=== PATIENT | female | born 1970 | race American Indian/Alaskan Native ===

== ENCOUNTER 2018-02-12 04:49 | Emergency (ER) | payer BC, OTHER ==
[2018-02-12] MEDS ORDERED: XANAX PO ONE (07:20)
--- NOTE | 2018-02-12 07:25 | Emergency Department Report ---
HPI - General Chief Complaint: Anxiety Time Seen by Provider: 02/12/18 07:02 - HPI HPI: 47-year-old AA female presents to the emergency department with complaint of inability to sleep, some racing thoughts, anxiety. The patient has a history of bipolar disorder and usually is on Abilify 5 mg. She says that she has been compliant with his medication but her says that she has not been on it and ran out of the medication a while back. The patient says that she recently has been dealing with a lot of stress including seeing her father in the hospital dealing with some TIAs or seizures. The patient also says that she tries to avoid hearing or seeing the news as it upsets her but she found out in the waiting room this morning that there was some children that had been killed that was playing on the local news. When these things occur, the patient gets headaches, body aches and feels very tense. She denies any suicidal or homicidal ideations. She denies any auditory or visual hallucinations. The patient also has been dealing with some sinus issues for the past month. She also has been dealing with a cough and had a chest x-ray last that eventually showed that she had pneumonia. She was placed on amoxicillin on but was having some side effects from this medication and they stopped it on Friday. She denies any recent fever. She denies any chest pain or shortness of breath. ED Past Medical Hx - Past Medical History Previous Medical History?: Yes Hx Asthma: Yes - Surgical History Past Surgical History?: No - Social History Smoking Status: Never Smoker Substance Use Type: None - Medications Home Medications: Home Medications Medication Instructions Recorded Confirmed Last Taken Type ARIPiprazole [Abilify] 5 mg PO QDAY #30 tablet 02/12/18 Unknown Rx ED Review of Systems ROS: Stated complaint: ANXIETY ATTACK Other details as noted in HPI Comment: All other systems reviewed and negative Constitutional: denies: chills, fever Eyes: denies: eye pain, eye discharge, vision change ENT: denies: ear pain, throat pain Respiratory: denies: cough, shortness of breath, wheezing Cardiovascular: denies: chest pain, palpitations Gastrointestinal: denies: abdominal pain, nausea, diarrhea Genitourinary: denies: urgency, dysuria, discharge Musculoskeletal: myalgia. denies: back pain, joint swelling, arthralgia Skin: denies: rash, lesions Neurological: headache. denies: numbness, paresthesias Psychiatric: anxiety. denies: auditory hallucinations, visual hallucinations, homicidal thoughts, suicidal thoughts Physical Exam - Physical Exam Vital Signs: Vital Signs 02/12/18 02/12/18 05:15 06:51 Temperature 98.7 F 98.7 F Pulse Rate 97 H 87 Respiratory 18 18 Rate Blood Pressure 140/74 Blood Pressure 130/72 [Left] O2 Sat by Pulse 98 98 Oximetry Physical Exam: GENERAL: The patient is well-developed well-nourished. HENT: Normocephalic. Atraumatic. Patient has moist mucous membranes. EYES: Extraocular motions are intact. Pupils equal reactive to light bilaterally. NECK: Supple. Trachea is midline. CHEST/LUNGS: Clear to auscultation. There is no respiratory distress noted. HEART/CARDIOVASCULAR: Regular. There is no tachycardia. There is no murmur. ABDOMEN: Abdomen is soft, nontender. Patient has normal bowel sounds. There is no abdominal distention. SKIN: Skin is warm and dry. NEURO: The patient is awake, alert, and oriented. The patient is cooperative. The patient has no focal neurologic deficits. The patient has normal speech. MUSCULOSKELETAL: There is no tenderness or deformity. There is no limitation range of motion. There is no evidence of acute injury. ED Course Vital Signs 02/12/18 02/12/18 05:15 06:51 Temperature 98.7 F 98.7 F Pulse Rate 97 H 87 Respiratory 18 18 Rate Blood Pressure 140/74 Blood Pressure 130/72 [Left] O2 Sat by Pulse 98 98 Oximetry ED Medical Decision Making - Lab Data Result diagrams: 02/12/18 07:25 02/12/18 07:25 - Radiology Data Radiology results: image reviewed interpreted by me: Chest x-ray does not show any acute process. There are no pleural effusions, obvious pneumonia and there is no pneumothorax. - Medical Decision Making Patient is here for evaluation of her insomnia, possible anxiety or ricky. She does not have any hallucinations, suicidal or homicidal ideations. She does not appear to be a candidate to be made a 1013 for inpatient psychiatric admission. This was confirmed by the psych senior tax specialist, Obdulia, who saw the patient in the emergency department as well. Labs are mostly unremarkable. A chest x-ray was done that did not show any pneumonia, or any other acute process. Patient was given some Xanax at a low dose to see if it help her with her anxiety type symptoms and possibly get some rest. However she just felt slightly sedated but did not like the way it made her feel. Therefore I will not prescribe this medication to her. She was given a refill of her Abilify which she says is only at a dose of 5 mg per day. She has an appointment coming up this Friday with a psychiatrist or therapist who can then assess her for any additional medication she may need. She is still on Levaquin for a previous sinusitis and/or pneumonia diagnosis. She has been encouraged to return to the emergency Department with any worsening of her symptoms or any acute distress. - Differential Diagnosis bipolar disorder, depression, anxiety Critical Care Time: No Critical care attestation.: If time is entered above; I have spent that time in minutes in the direct care of this critically ill patient, excluding procedure time. ED Disposition Clinical Impression: History of bipolar disorder, Anxiety Insomnia Qualifiers: Insomnia type: unspecified Qualified Code(s): G47.00 - Insomnia, unspecified Disposition: DC-01 TO HOME OR SELFCARE Is pt being admited?: No Condition: Stable Instructions: Bipolar Disorder (ED), Insomnia (ED), Anxiety (ED) Additional Instructions: Please follow-up with your psychiatrist and/or therapist as soon as possible. Return to the emergency department with any worsening of your symptoms or any acute distress. Prescriptions: ARIPiprazole [Abilify] 5 mg PO QDAY #30 tablet Referrals: PRIMARY CAREMD [Primary Care Provider] - [facility] Time of Disposition: 12:18
[2018-02-12 07:36] LABS: Basophils % (Auto) 0.6 % (0.0-1.8); Eosinophils # (Auto) 0.1 K/mm3 (0.0-0.4); Eosinophils % (Auto) 2.2 % (0.0-4.3); Hematocrit 36.6 % (30.3-42.9); Hemoglobin 12.2 gm/dl (10.1-14.3); Lymphocytes # (Auto) 1.4 K/mm3 (1.2-5.4); Lymphocytes % (Auto) 31.7 % (13.4-35.0); Mean Corpuscular HGB Conc 33 % (30-34); Mean Corpuscular Hemoglobin 30 pg (28-32); Mean Corpuscular Volume 90 fl (79-97); Monocytes # (Auto) 0.5 K/mm3 (0.0-0.8); Monocytes % (Auto) 10.7 % (0.0-7.3); Platelet Count 220 K/mm3 (140-440); Red Blood Count 4.09 M/mm3 (3.65-5.03); Red Cell Distribution Width 13.7 % (13.2-15.2)
[2018-02-12 07:50] LABS: BUN/Creatinine Ratio 21; Blood Urea Nitrogen 17 mg/dL (7-17); Hemolysis Index 3
--- NOTE | 2018-02-12 08:22 | XRay Report ---
ROUTINE CHEST, TWO VIEWS: HISTORY: Medical clearance for psychiatry, chest pain. The trachea, heart, mediastinal contour, lung galindo and bony thorax are unremarkable. IMPRESSION: Unremarkable chest x-ray.
[2018-02-12 17:39] VITALS: BP 128/72
== END 2018-02-12 13:00 | disposition home or self-care (01) ==
LOC: ED 04:49
DX: G47.00 Insomnia, unspecified (principal); F41.9 Anxiety disorder, unspecified; J45.909 Unspecified asthma, uncomplicated
CPT/HCPCS: 36415; 71046; 80048; 84443; 85025

== ENCOUNTER 2018-02-14 06:42 | Emergency (ER) | payer BC ==
[2018-02-14] MEDS ORDERED: TYLENOL #3 PO ONE (09:17)
--- NOTE | 2018-02-14 09:18 | Emergency Department Report ---
ED Extremity Problem HPI - General Chief complaint: Pain General Stated complaint: PAIN ALL OVER BODY Time Seen by Provider: 02/14/18 08:37 Source: patient Mode of arrival: Ambulatory Limitations: No Limitations - History of Present Illness Initial comments: 47-year-old female past medical history bipolar disorder, carpal tunnel syndrome right hand, migraines, asthma presents with complaint of left wrist/ forearm pain which has been ongoing for several weeks but worse in the last 2 days. Patient states that symptoms are consistent with carpal tunnel syndrome which she has experienced chronically in her right hand/arm. Denies any direct trauma to left wrist. Patient also states that she has been having chronic bilateral knee pain is slightly worse than left knee than right knee. Patient complains of some radiation of pain to left calf. Patient denies any recent trauma. Patient is awake alert and oriented 3. Denies any fevers chills chest pain shortness of breath. Denies any history of DVT or PE denies being on any control medications. States pain from left wrist causes numbness and tingling to radiate from left wrist into middle ring and pinky fingers. MD Complaint: extremity pain Onset/Timin -: days(s) Location: left (left wrist), knee History of Same: Yes -: Yes arthralgia Severity scale (0 -10): 5 Quality: aching Consistency: intermittent Improves with: nothing Worsens with: nothing Associated Symptoms: denies other symptoms - Related Data Previous Rx's Medication Instructions Recorded Last Taken Type ARIPiprazole [Abilify] 5 mg PO QDAY #30 tablet 02/12/18 Unknown Rx HYDROcodone/APAP 5-325 [[place] 1 each PO Q6HR PRN #2 tablet 02/14/18 Unknown Rx 5/325] Ibuprofen [Motrin] 800 mg PO Q8HR PRN #20 tablet 02/14/18 Unknown Rx Allergies Allergy/AdvReac Type Severity Reaction Status Date / Time No Known Allergies Allergy Unverified 02/12/18 05:22 ED Review of Systems ROS: Stated complaint: PAIN ALL OVER BODY Other details as noted in HPI Constitutional: denies: chills, fever Eyes: denies: eye pain, eye discharge, vision change ENT: denies: ear pain, throat pain Respiratory: denies: cough, shortness of breath, wheezing Cardiovascular: denies: chest pain, palpitations Endocrine: no symptoms reported Gastrointestinal: denies: abdominal pain, nausea, diarrhea Genitourinary: denies: urgency, dysuria, discharge Musculoskeletal: denies: back pain, joint swelling, arthralgia Skin: denies: rash, lesions Neurological: denies: headache, weakness, paresthesias Psychiatric: denies: anxiety, depression Hematological/Lymphatic: denies: easy bleeding, easy bruising ED Past Medical Hx - Past Medical History Previous Medical History?: Yes Hx Psychiatric Treatment: Yes (Bipolar) Hx Asthma: Yes Additional medical history: migraine - Surgical History Past Surgical History?: Yes Additional Surgical History: Tubaligation - Social History Smoking Status: Never Smoker Substance Use Type: None - Medications Home Medications: Home Medications Medication Instructions Recorded Confirmed Last Taken Type ARIPiprazole [Abilify] 5 mg PO QDAY #30 tablet 02/12/18 Unknown Rx HYDROcodone/APAP 5-325 [[place] 1 each PO Q6HR PRN #2 tablet 02/14/18 Unknown Rx 5/325] Ibuprofen [Motrin] 800 mg PO Q8HR PRN #20 tablet 02/14/18 Unknown Rx ED Physical Exam - General Limitations: No Limitations General appearance: alert, in no apparent distress - Head Head exam: Present: atraumatic, normocephalic - Eye Eye exam: Present: normal appearance, PERRL, EOMI - ENT ENT exam: Present: mucous membranes moist - Neck Neck exam: Present: normal inspection - Respiratory Respiratory exam: Present: normal lung sounds bilaterally. Absent: respiratory distress - Cardiovascular Cardiovascular Exam: Present: regular rate, normal rhythm. Absent: systolic murmur, diastolic murmur, rubs, gallop - GI/Abdominal GI/Abdominal exam: Present: soft, normal bowel sounds - Extremities Exam Extremities exam: Present: normal inspection - Expanded Upper Extremity Exam Left Elbow exam: Present: normal inspection, full ROM Forearm Wrist exam: Present: normal inspection, other (+ phalpen and tinel sign) Hand Wrist exam: Present: normal inspection, full ROM (left wrist flexion and extension intact) Neuro motor exam: Present: wrist extension intact, thumb opposition intact, thumb IP flexion intact, thumb adduction intact, fingers 2-5 abduction intact Vascular: Present: radial pulse, brachial pulse, ulnar pulse (distal radial brachial and ulnar pulses strong to palpation, capillary refill less than one second in all finger) - Expanded Lower Extremity Exam Left Knee exam: Present: normal inspection, full ROM, full knee extension (flexion and extension intact left knee) Lower Leg exam: Present: normal inspection, full ROM Ankle exam: Present: normal inspection, full ROM Foot/Toe exam: Present: normal inspection, full ROM Neuro vascular tendon exam: Present: no vascular compromise (distal dorsalis pedis and posterior tibial pulses strong to palpation) - Back Exam Back exam: Present: normal inspection - Neurological Exam Neurological exam: Present: alert, oriented X3 - Psychiatric Psychiatric exam: Present: normal affect, normal mood - Skin Skin exam: Present: warm, dry, intact, normal color. Absent: rash ED Course Vital Signs 02/14/18 06:57 Temperature 98.7 F Pulse Rate 101 H Respiratory 20 Rate Blood Pressure 112/69 O2 Sat by Pulse 98 Oximetry ED Medical Decision Making - Medical Decision Making A/P: Chronic extremity pain, left wrist carpal tunnel 1-patient provided with left wrist Velcro volar splint. Left upper extremity neurovascularly intact on exam. Patient exhibits history and clinical signs of carpal tunnel based on interview and exam 2-Motrin when necessary 3-follow-up with primary care and orthopedics 4- x-rays of knee is unremarkable, lower extremity duplex negative for DVT Critical care attestation.: If time is entered above; I have spent that time in minutes in the direct care of this critically ill patient, excluding procedure time. ED Disposition Clinical Impression: Carpal tunnel syndrome of left wrist Chronic pain Qualifiers: Chronic pain type: other chronic pain Qualified Code(s): G89.29 - Other chronic pain Left knee pain Qualifiers: Chronicity: chronic Qualified Code(s): M25.562 - Pain in left knee; G89.29 - Other chronic pain Disposition: TO HOME OR SELFCARE Is pt being admited?: No Does the pt Need Aspirin: No Condition: Stable Instructions: Arthralgia (ED), Carpal Tunnel Syndrome (ED), RICE Therapy (ED) Prescriptions: HYDROcodone/APAP 5-325 [[place] 5/325] 1 each PO Q6HR PRN #2 tablet PRN Reason: Pain Ibuprofen [Motrin] 800 mg PO Q8HR PRN #20 tablet PRN Reason: Pain Referrals: KASSIE EMERSON [Other] - 3-5 Days [facility] [Provider Group] - 3-5 Days Time of Disposition: 11:08
--- NOTE | 2018-02-14 10:21 | XRay Report ---
BILATERAL KNEES, 3 VIEWS History: Bilateral knee pain. Findings: Normal bone mineralization. No osseous abnormality or joint pathology is appreciated. The soft tissues are within normal limits. Impression: Unremarkable bilateral knees.
[2018-02-14 11:19] VITALS: BP 108/54
== END 2018-02-14 11:18 | disposition home or self-care (01) ==
LOC: ED 06:42
DX: G56.02 Carpal tunnel syndrome, left upper limb (principal); G89.29 Other chronic pain; M25.562 Pain in left knee; J45.909 Unspecified asthma, uncomplicated; G43.909 Migraine, unspecified, not intractable, without status migrainosus; F31.9 Bipolar disorder, unspecified; Z98.51 Tubal ligation status
CPT/HCPCS: 99283

== ENCOUNTER 2019-01-25 00:33 | Emergency (ER) | payer BC ==
[2019-01-25 01:40] LABS: Bilirubin,Urine NEG (Negative); Blood,Urine SM (Negative); Color,Urine Straw (Yellow); Mucus,Urine FEW /HPF; Protein,Urine <15 mg/dL mg/dL (Negative); Urobilinogen,Urine < 2.0 mg/dL (<2.0); WBC,Urine < 1.0 /HPF (0.0-6.0)
[2019-01-25 02:04] LABS: Amphetamine Screen,Urine PRESUMPTIVE NEGATIVE; Benzodiazepines Screen,Urine PRESUMPTIVE NEGATIVE; Cannabinoid Screen,Urine PRESUMPTIVE NEGATIVE; Cocaine Screen,Urine PRESUMPTIVE NEGATIVE; Methadone Screen,Urine PRESUMPTIVE NEGATIVE; Opiate Screen,Urine PRESUMPTIVE NEGATIVE
[2019-01-25 02:40] LABS: Basophils % (Auto) 1.1 % (0.0-1.8); Hematocrit 35.9 % (30.3-42.9); Lymphocytes # (Auto) 0.9 K/mm3 (1.2-5.4); Lymphocytes % (Auto) 30.9 % (13.4-35.0); Mean Corpuscular HGB Conc 33 % (30-34); Mean Corpuscular Volume 93 fl (79-97); Monocytes # (Auto) 0.4 K/mm3 (0.0-0.8); Monocytes % (Auto) 14.6 % (0.0-7.3); Platelet Count 221 K/mm3 (140-440); Red Blood Count 3.85 M/mm3 (3.65-5.03)
[2019-01-25 03:01] LABS: Alanine Aminotransferase 36 units/L (7-56); Albumin 4.3 g/dL (3.9-5); BUN/Creatinine Ratio 16; Blood Urea Nitrogen 11 mg/dL (7-17); Calcium 8.7 mg/dL (8.4-10.2); Hemolysis Index 42
[2019-01-25] MEDS ORDERED: ZOFRAN ODT PO ONE (03:53)
[2019-01-25] MEDS ORDERED: TORADOL IM ONE (03:53)
[2019-01-25] MEDS ORDERED: NORCO 5/325 PO ONE (03:53)
--- NOTE | 2019-01-25 04:01 | Emergency Department Report ---
ED General Adult HPI - General Chief complaint: Psych Stated complaint: HEADACHE BODY PAIN Time Seen by Provider: 01/25/19 03:42 Source: patient Mode of arrival: Ambulatory Limitations: No Limitations - History of Present Illness Initial comments: Miss Iverson is a very pleasant healthy 48-year-old female with history of bipolar disorder, carpal tunnel syndrome, migraine headache, anxiety who presents with diffuse joint pain, chronic migraine headache and diarrhea. She is concerned for potential dehydration. Consequently she called 911. She has b een managing her migraine headache with Imitrex over the last 2 months. However the Imitrex has not provided for relief. She has been referred to neurologist by her PCP at [facility]. She had 2 bouts of diarrhea. She's had frequent urination. Diffuse joint pain in her shoulders elbows and knees. She also has a history of asthma. She requests refill of rescue inhaler albuterol. -: Gradual, days(s) (several days joint pain), month(s) (several months migraine headache) Location: head, left, right, upper extremity, lower extremity Severity scale (0 -10): 8 Quality: aching Consistency: constant, intermittent Associated Symptoms: headaches, malaise - Related Data Previous Rx's Medication Instructions Recorded Last Taken Type ARIPiprazole [Abilify] 5 mg PO QDAY #30 tablet 02/12/18 Unknown Rx HYDROcodone/APAP 5-325 [[place] 1 each PO Q6HR PRN #2 tablet 02/14/18 Unknown Rx 5/325] Ibuprofen [Motrin] 800 mg PO Q8HR PRN #20 tablet 02/14/18 Unknown Rx ALBUTEROL Inhaler (OR & NICU) 2 puff IH QID PRN #1 device 01/25/19 Unknown Rx [ProAir HFA Inhaler] Allergies Allergy/AdvReac Type Severity Reaction Status Date / Time No Known Allergies Allergy Unverified 02/12/18 05:22 ED Review of Systems ROS: Stated complaint: HEADACHE BODY PAIN Other details as noted in HPI Comment: All other systems reviewed and negative Constitutional: malaise Respiratory: denies: cough ED Past Medical Hx - Past Medical History Previous Medical History?: Yes Hx Psychiatric Treatment: Yes (Bipolar) Hx Asthma: Yes Additional medical history: migraine - Surgical History Past Surgical History?: Yes Additional Surgical History: Tubaligation - Social History Smoking Status: Never Smoker Substance Use Type: None - Medications Home Medications: Home Medications Medication Instructions Recorded Confirmed Last Taken Type ARIPiprazole [Abilify] 5 mg PO QDAY #30 tablet 02/12/18 Unknown Rx HYDROcodone/APAP 5-325 [[place] 1 each PO Q6HR PRN #2 tablet 02/14/18 Unknown Rx 5/325] Ibuprofen [Motrin] 800 mg PO Q8HR PRN #20 tablet 02/14/18 Unknown Rx ALBUTEROL Inhaler (OR & NICU) 2 puff IH QID PRN #1 device 01/25/19 Unknown Rx [ProAir HFA Inhaler] ED Physical Exam - General Limitations: No Limitations General appearance: alert, in no apparent distress - Head Head exam: Present: atraumatic, normocephalic - Eye Eye exam: Present: normal appearance - ENT ENT exam: Present: mucous membranes moist - Neck Neck exam: Present: normal inspection, full ROM - Respiratory Respiratory exam: Present: normal lung sounds bilaterally. Absent: respiratory distress, wheezes, rales, rhonchi - Cardiovascular Cardiovascular Exam: Present: regular rate, normal rhythm, normal heart sounds. Absent: systolic murmur, diastolic murmur, rubs, gallop - GI/Abdominal GI/Abdominal exam: Present: soft, normal bowel sounds. Absent: distended, tenderness, guarding, rebound - Extremities Exam Extremities exam: Present: normal inspection - Back Exam Back exam: Present: normal inspection - Neurological Exam Neurological exam: Present: alert, oriented X3 - Psychiatric Psychiatric exam: Present: normal mood, flat affect. Absent: homicidal ideation, suicidal ideation - Skin Skin exam: Present: warm, dry, intact, normal color. Absent: rash ED Course Vital Signs 01/25/19 01/25/19 01/25/19 00:44 00:59 02:15 Temperature 98.8 F 98.8 F 98.1 F Pulse Rate 94 H 96 H 90 Respiratory 18 18 18 Rate Blood Pressure 146/84 146/84 Blood Pressure 118/75 [Right] O2 Sat by Pulse 100 100 98 Oximetry ED Medical Decision Making - Lab Data Result diagrams: 01/25/19 02:18 01/25/19 02:18 Laboratory Results - last 24 hr 01/25/19 01/25/19 01/25/19 00:51 00:51 02:18 WBC 3.0 L RBC 3.85 Hgb 12.0 Hct 35.9 MCV 93 MCH 31 MCHC 33 RDW 15.0 Plt Count 221 Lymph % (Auto) 30.9 [place] % (Auto) 14.6 H Eos % (Auto) 1.0 Baso % (Auto) 1.1 Lymph # 0.9 L [place] # 0.4 Eos # 0.0 Baso # 0.0 Seg Neutrophils % 52.4 Seg Neutrophils # 1.6 L Sodium Potassium Chloride Carbon Dioxide Anion Gap BUN Creatinine Estimated GFR BUN/Creatinine Ratio Glucose Calcium Total Bilirubin AST ALT Alkaline Phosphatase Troponin T Total Protein Albumin Albumin/Globulin Ratio Urine Color Straw Urine Turbidity Clear Urine pH 6.0 Ur Specific [place] 1.010 Urine Protein <15 mg/dl Urine Glucose (UA) Neg Urine Ketones Neg Urine Blood Sm Urine Nitrite Neg Urine Bilirubin Neg Urine Urobilinogen < 2.0 Ur Leukocyte Esterase Neg Urine WBC (Auto) < 1.0 Urine RBC (Auto) 2.0 U Epithel Cells (Auto) 1.0 Urine Mucus Few Urine Opiates Screen Presumptive negative Urine Methadone Screen Presumptive negative Ur Barbiturates Screen Presumptive negative Ur Phencyclidine Scrn Presumptive negative Ur Amphetamines Screen Presumptive negative U Benzodiazepines Scrn Presumptive negative Urine Cocaine Screen Presumptive negative U Marijuana (THC) Screen Presumptive negative Drugs of Abuse Note Disclamer 01/25/19 02:18 WBC RBC Hgb Hct MCV MCH MCHC RDW Plt Count Lymph % (Auto) [place] % (Auto) Eos % (Auto) Baso % (Auto) Lymph # [place] # Eos # Baso # Seg Neutrophils % Seg Neutrophils # Sodium 136 L Potassium 3.7 Chloride 99.3 Carbon Dioxide 22 Anion Gap 18 BUN 11 Creatinine 0.7 Estimated GFR > 60 BUN/Creatinine Ratio 16 Glucose 97 Calcium 8.7 Total Bilirubin 0.40 AST 25 ALT 36 Alkaline Phosphatase 38 Troponin T < 0.010 Total Protein 7.1 Albumin 4.3 Albumin/Globulin Ratio 1.5 Urine Color Urine Turbidity Urine pH Ur Specific [place] Urine Protein Urine Glucose (UA) Urine Ketones Urine Blood Urine Nitrite Urine Bilirubin Urine Urobilinogen Ur Leukocyte Esterase Urine WBC (Auto) Urine RBC (Auto) U Epithel Cells (Auto) Urine Mucus Urine Opiates Screen Urine Methadone Screen Ur Barbiturates Screen Ur Phencyclidine Scrn Ur Amphetamines Screen U Benzodiazepines Scrn Urine Cocaine Screen U Marijuana (THC) Screen Drugs of Abuse Note - EKG Data EKG shows normal: sinus rhythm, axis, intervals, QRS complexes, ST-T waves Rate: normal - EKG Data Interpretation: no acute changes - Medical Decision Making Ms. Iverson presents with diffuse joint pain migraine headache. CBC chemistry urinalysis EKG all within normal limits. No evidence of sepsis or ACS. She received IM and by mouth analgesia and ADD. I prescribed albuterol rescue inhaler as requested. I explained the she appeared well hydrated on clinical exam. Her electrolytes and kidney function were at normal levels. Critical care attestation.: If time is entered above; I have spent that time in minutes in the direct care of this critically ill patient, excluding procedure time. ED Disposition Clinical Impression: Migraine headache, Arthralgia, Frequent urination, Diarrhea Disposition: - TO HOME OR SELFCARE Is pt being admited?: No Does the pt Need Aspirin: No Condition: Stable Instructions: Migraine Headache (ED) Prescriptions: ALBUTEROL Inhaler (OR & NICU) [ProAir HFA Inhaler] 2 puff IH QID PRN #1 device PRN Reason: Shortness Of Breath
[2019-01-25 04:30] VITALS: BP 122/76
== END 2019-01-25 04:53 | disposition home or self-care (01) ==
LOC: ED 00:33
DX: G43.909 Migraine, unspecified, not intractable, without status migrainosus (principal); R19.7 Diarrhea, unspecified; R35.0 Frequency of micturition; M25.50 Pain in unspecified joint; J45.909 Unspecified asthma, uncomplicated; F31.9 Bipolar disorder, unspecified; Z98.51 Tubal ligation status; Z88.6 Allergy status to analgesic agent; Z79.899 Other long term (current) drug therapy
CPT/HCPCS: 36415; 80053; 80307; 81001; 84484; 85025; 93005; 93010; 96372; 99284; J1885; Q0162

== ENCOUNTER 2020-02-19 04:57 | Emergency (ER) | payer BC ==
[2020-02-19 05:56] LABS: Basophils # (Auto) 0.1 K/mm3 (0.0-0.1); Basophils % (Auto) 1.3 % (0.0-1.8); Eosinophils % (Auto) 0.3 % (0.0-4.3); Hematocrit 35.2 % (30.3-42.9); Lymphocytes # (Auto) 0.9 K/mm3 (1.2-5.4); Lymphocytes % (Auto) 21.7 % (13.4-35.0); Mean Corpuscular HGB Conc 34 % (30-34); Mean Corpuscular Volume 92 fl (79-97); Monocytes # (Auto) 0.3 K/mm3 (0.0-0.8); Monocytes % (Auto) 8.2 % (0.0-7.3); Platelet Count 239 K/mm3 (140-440); Red Blood Count 3.82 M/mm3 (3.65-5.03); Red Cell Distribution Width 13.7 % (13.2-15.2)
[2020-02-19 06:09] LABS: BUN/Creatinine Ratio 27; Blood Urea Nitrogen 19 mg/dL (7-17); Calcium 8.8 mg/dL (8.4-10.2); Hemolysis Index 2
[2020-02-19 06:22] LABS: Bilirubin,Urine NEG (Negative); Blood,Urine NEG (Negative); Color,Urine Yellow (Yellow); Hyaline Casts,Urine 1 /LPF; Mucus,Urine FEW /HPF; Urobilinogen,Urine < 2.0 mg/dL (<2.0)
[2020-02-19 06:25] LABS: Amphetamine Screen,Urine PRESUMPTIVE NEGATIVE; Benzodiazepines Screen,Urine PRESUMPTIVE NEGATIVE; Cannabinoid Screen,Urine PRESUMPTIVE NEGATIVE; Cocaine Screen,Urine PRESUMPTIVE NEGATIVE; Methadone Screen,Urine PRESUMPTIVE NEGATIVE; Opiate Screen,Urine PRESUMPTIVE NEGATIVE
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
[2020-02-19] MEDS ORDERED: POTASSIUM CHLORIDE ER 20 MEQ TAB PO ONE (07:37)
[2020-02-19] MEDS ORDERED: IBUPROFEN 600 MG TAB PO ONE (07:37)
[2020-02-19] MEDS ORDERED: ZIPRASIDONE 20 MG CAP ONE (09:44)
[2020-02-19] MEDS ORDERED: ZIPRASIDONE 20 MG CAP PO ONE (09:57)
[2020-02-19] MEDS ORDERED: HALOPERIDOL LACTATE 5 MG/1 ML INJ ONE (10:53)
[2020-02-19] MEDS ORDERED: LORazepam 2 MG/ML VIAL ONE (10:54)
[2020-02-19] MEDS ORDERED: LORazepam 2 MG/ML VIAL IM ONE (11:00)
[2020-02-19] MEDS ORDERED: HALOPERIDOL LACTATE 5 MG/1 ML INJ IM ONE (11:00)
[2020-02-19 20:30] VITALS: BP 114/70
== END 2020-02-19 20:30 ==
LOC: ED 04:57
DX: R41.82 Altered mental status, unspecified (principal); F31.9 Bipolar disorder, unspecified; J45.909 Unspecified asthma, uncomplicated; G43.909 Migraine, unspecified, not intractable, without status migrainosus; Z79.899 Other long term (current) drug therapy; Z98.51 Tubal ligation status; Z88.8 Allergy status to other drugs, medicaments and biological substances
CPT/HCPCS: 36415; 80048; 80307; 81001; 84703; 85025; 96372; 99285; J1630; J2060; 80320; G0480